=== PATIENT | male | born 1980 | race Caucasian/White ===

== ENCOUNTER 2020-06-10 20:17 | Observation (INO) | payer OTHER ==
--- NOTE | 2020-06-10 20:47 | ER Document Report ---
ED Medical Screen (RME) - General Chief Complaint: Blood Pressure Problem Stated Complaint: RIGHT SIDED NUMBNESS/BLOOD PRESSURE PROBLEMS Time Seen by Provider: 06/10/20 20:34 TRAVEL OUTSIDE OF THE [place] IN LAST 30 DAYS: No - HPI Notes: 06/10/20 20:41 39-year-old male presents to emergency room for complaints of right sided full body numbness and tingling that started at 1830 while he was making dinner t onight. pt states felt dizzy while making dinner, felt a headache come on and then the right side of his body went numb. This lasted for approximately 90 minutes. he states that the numbness and tingling is starting to dissipate since coming to the ER. Denies any chest pain, shortness of breath, nausea, vomiting, abdominal pain. Denies any prior history of any heart attack or strokes. Denies any history of her sugar strokes on his parents side. Denies any preworkout or high caffeine intake. States he did drink coffee at 1030 this morning. Denies any clotting disorders. I have greeted and performed a rapid initial assessment of this patient. A comprehensive ED assessment and evaluation of the patient, analysis of test results and completion of the medical decision making process will be conducted by additional ED providers. PHYSICAL EXAMINATION: GENERAL: Well-appearing, well-nourished and in no acute distress. HEAD: Atraumatic, normocephalic. EYES: Pupils equal round extraocular movements intact, conjunctiva are normal. NECK: Normal range of motion CV: s1, s2 regular LUNGS: No respiratory distress Musculoskeletal: Normal range of motion NEUROLOGICAL: Normal speech, normal gait. PERRLA, EOMI. Full motor and sensory function throughout. [employer] + 2 L>R. No facial droop. Face symmetrical. tongue midline. No pronator drift. Slight ataxia while walking. Noted dysmetria on right, no dysmetria on left. neck with APROM. Raises eyebrows. Speaks in full sentences. No weakness on one side. SKIN: Warm, Dry, normal turgor, no rashes or lesions noted. 06/10/20 20:48 Dr. Ross and charge nurse, Anamaria, made aware at [address] Ross is recommended a CTA head and neck along with stroke work-up - Related Data Allergies/Adverse Reactions: No Known Allergies Allergy (Unverified 12/22/16 16:01) Physical Exam - Vital signs Vitals: Temp Pulse Resp BP Pulse Ox 98.2 F 79 17 145/95 H 100 06/10/20 20:29 06/10/20 20:29 06/10/20 20:29 06/10/20 20:29 06/10/20 20:29 Course - Vital Signs Vital signs: Temp Pulse Resp BP Pulse Ox 98.2 F 79 17 145/95 H 100 06/10/20 20:29 06/10/20 20:29 06/10/20 20:29 06/10/20 20:29 06/10/20 20:29
[2020-06-10 21:06] LABS: ABSOLUTE LYMPHOCYTES (AUTO) 2.1 10^3/uL (0.5-4.7); ABSOLUTE MONOCYTES (AUTO) 0.9 10^3/uL (0.1-1.4); ABSOLUTE NEUT (AUTO) 6.3 10^3/uL (1.7-8.2); BASOPHILS % (AUTO) 0.4 % (0-2); EOSINOPHILS % (AUTO) 0.4 % (0-6); HEMATOCRIT 44.5 % (37.9-51.0); HEMOGLOBIN 15.5 g/dL (13.5-17.0); INTERNATIONAL RATION (INR) 1.06; LYMPHOCYTES % (AUTO) 22.5 % (13-45); MEAN CORPUSCULAR HEMOGLOBIN 32.1 pg (27.0-33.4); MEAN CORPUSCULAR HGB CONC 34.9 g/dL (32.0-36.0); MEAN CORPUSCULAR VOLUME 92 fl (80-97); MONOCYTES % (AUTO) 9.7 % (3-13); PLATELET COUNT 212 10^3/uL (150-450); RED BLOOD COUNT 4.85 10^6/uL (4.35-5.55); RED CELL DISTRIBUTION WIDTH 13.1 % (11.5-14.0); TOTAL CELLS COUNTED % (AUTO) 100 %; WHITE BLOOD COUNT 9.4 10^3/uL (4.0-10.5)
--- NOTE | 2020-06-10 21:20 | RADIOLOGY REPORT (SQ) ---
EXAM DESCRIPTION: Site: CHEST SINGLE VIEW RP: XR CHEST 1 VIEW CLINICAL HISTORY: 39 years Male; right sided n/t at 1830; COMPARISON: None. FINDINGS: Lungs: Lungs are clear, with no focal infiltrate, pneumothorax, or pleural effusion. Mediastinum: Mediastinum is within normal limits for this positioning. Bones: Bony structures are unremarkable. IMPRESSION: 1. No acute pulmonary findings.
--- NOTE | 2020-06-10 21:22 | RADIOLOGY REPORT (SQ) ---
EXAM DESCRIPTION: CT HEAD WITHOUT IV CONTRAST COMPLETED DATE/TME: 06/10/2020 20:43 CLINICAL HISTORY: 39 years, Male, R side n/t, r/o stroke. onset 183 COMPARISON: CT from 07/22/2016. TECHNIQUE: Axial images without contrast. Sagittal coronal reconstruction. Images stored on PACS. All CT scanners at this facility use dose modulation, iterative reconstruction, and/or weight based dosing when appropriate to reduce radiation dose to as low as reasonably achievable (ALARA). FINDINGS: Normal size ventricles. No acute intra-axial or extra-axial abnormality. Paranasal sinuses, mastoid air cells and bony calvarium are unremarkable. IMPRESSION: Negative noncontrast CT of the head.
[2020-06-10 21:23] LABS: ALBUMIN 4.7 g/dL (3.5-5.0); ALKALINE PHOSPHATASE 67 U/L (38-126); ANION GAP 12 (5-19); ASPARTATE AMINO TRANSFERASE 32 U/L (17-59); BILIRUBIN,TOTAL 0.7 mg/dL (0.2-1.3); BLOOD UREA NITROGEN 16 mg/dL (7-20); CALCIUM 10.3 mg/dL (8.4-10.2); CARBON DIOXIDE 26 mmol/L (22-30); CHLORIDE 102 mmol/L (98-107); GLUCOSE 105 mg/dL (75-110); POTASSIUM 3.9 mmol/L (3.6-5.0); TOTAL PROTEIN 7.4 g/dL (6.3-8.2)
--- NOTE | 2020-06-10 21:27 | RADIOLOGY REPORT (SQ) ---
EXAM DESCRIPTION: CT NECK ANGIOGRAPHY WITHOUT THEN WITH IV CONTRAST COMPLETED DATE/TME: 06/10/2020 21:14 CLINICAL HISTORY: 39 years, Male, right sided n/t at 1830 COMPARISON: None. TECHNIQUE: 100 mL of Omnipaque 350. MIP reconstruction. Images stored on PACS. All CT scanners at this facility use dose modulation, iterative reconstruction, and/or weight based dosing when appropriate to reduce radiation dose to as low as reasonably achievable (ALARA). FINDINGS: Top of the aortic arch, origin of great vessels are unremarkable. Patent bilateral vertebral arteries. Patent bilateral common carotid and internal carotid and external carotid arteries without narrowing. Soft tissues of the neck and cervical spine are unremarkable. IMPRESSION: Normal CTA of the neck. TECHNICAL DOCUMENTATION: Quality ID # 436: Final reports with documentation of one or more dose reduction techniques (e.g., Automated exposure control, adjustment of the mA and/or kV according to patient size, use of iterative reconstruction technique) copyright 2011 [employer]- All Rights Reserved
--- NOTE | 2020-06-10 21:31 | RADIOLOGY REPORT (SQ) ---
EXAM DESCRIPTION: CT HEAD ANGIOGRAPHY WITHOUT THEN WITH IV CONTRAST COMPLETED DATE/TME: 06/10/2020 21:14 CLINICAL HISTORY: 39 years, Male, right sided n/t at 1830 COMPARISON: CT of the head from today. TECHNIQUE: Axial images with 100 mL of Omnipaque 350. MIP reconstruction. Images stored on PACS. All CT scanners at this facility use dose modulation, iterative reconstruction, and/or weight based dosing when appropriate to reduce radiation dose to as low as reasonably achievable (ALARA). FINDINGS: Distal vertebral, basilar and posterior cerebral arteries are unremarkable. Distal internal carotid middle and anterior cerebral arteries are unremarkable. IMPRESSION: Normal CTA of the head
[2020-06-10] MEDS ORDERED: ASPIRIN 325 MG TABLET PO ONE (21:40)
--- NOTE | 2020-06-10 21:46 | ER Document Report ---
ED General - General Chief Complaint: S/S of Possible Stroke Stated Complaint: RIGHT SIDED NUMBNESS/BLOOD PRESSURE PROBLEMS Time Seen by Provider: 06/10/20 20:34 TRAVEL OUTSIDE OF THE [place] IN LAST 30 DAYS: No - HPI Notes: Patient is a 39-year-old male who presents to the emergency department for evaluation. At approximately 1800 hrs., he was in the kitchen preparing dinner. He noticed that the right side of his body had gone numb. He complained of right-sided facial numbness, and particularly right upper extremity numbness. He developed a headache at the same time in the left frontal region. He described as an aching. He put the pain at its worst at a 4 out of 10. He went up to talk to his . He did have some stumbling. When speaking to her, she noticed some slurring of his speech, but he did not notice that. Since arriving in the emergency department, the patient states his pain is currently a 1 out of 10. The numbness is improved. His speech has normalized. He has no history of head injury. He denies any difficulty seeing or swallowing. He denied any obvious weakness in the lower or upper extremities. He is currently being evaluated for possible hypertension. He has had multiple visits at the [facility], where his blood pressures were in the 160s over 90s. - Related Data Allergies/Adverse Reactions: No Known Allergies Allergy (Verified 06/10/20 20:57) Home Medications: None Past Medical History - General Information source: Patient - Social History Smoking Status: Former Smoker Chew tobacco use (# tins/day): Yes Frequency of alcohol use: Occasional Drug Abuse: None Family History: Reviewed & Not Pertinent, DM Patient has homicidal ideation: No Past Surgical History: Reports: Hx Orthopedic Surgery Review of Systems - Review of Systems Constitutional: No symptoms reported EENT: No symptoms reported Cardiovascular: No symptoms reported Respiratory: No symptoms reported Gastrointestinal: No symptoms reported Genitourinary: No symptoms reported Musculoskeletal: No symptoms reported Skin: No symptoms reported Neurological/Psychological: See HPI -: Yes All other systems reviewed and negative Physical Exam - Vital signs Vitals: Temp 98.2 F 06/10/20 20:17 - Notes Notes: Vital signs reviewed, please refer to chart. Head is normocephalic, atraumatic. Pupils equal round, reactive to light. Neck is supple without meningismus. Heart is regular rate and rhythm. Lungs are clear to auscultation bilaterally. Abdomen is soft, nontender, normoactive bowel sounds throughout. Extremities without cyanosis, clubbing. Posterior calves are nontender. Peripheral pulses are equal. Skin is warm and dry. Patient is awake, alert, oriented x3. Cranial nerves II - XII are grossly intact without focal neurological deficits. Strength is plus 5 out of 5 bilateral upper and lower extremities. Sensation is intact. Reflexes symmetrical. Intact [id number], rapid alternating movements, [id number]. Course - Re-evaluation Re-evalutation: 06/10/20 21:44 Patient presents to the emergency department for evaluation. He was initially seen through triage. Given his findings and report of significant deficits, decision was made to perform CTA of the head and neck in addition to the noncontrast CT scan of the head. The patient was placed on a personnel monitor. At the time of my exam, he has no focal neurological deficits. Of course, this does rule out an acute CVA at this time, and he is not a candidate for any sort of TPA or intervention. I am, however, concerned significantly that this is a harbinger of more significant neurological event. Laboratory investigation showed a mildly elevated creatinine but was otherwise unremarkable. Imaging unremarkable. EKG showed a sinus rhythm. Patient was given aspirin. Again he is currently stable. Will discuss admission with the hospitalist. - Vital Signs Vital signs: Temp Pulse Resp BP Pulse Ox 98.2 F 66 13 148/91 H 100 06/10/20 20:29 06/10/20 20:56 06/10/20 20:56 06/10/20 20:56 06/10/20 20:56 - Laboratory Result Diagrams: 06/10/20 20:56 06/10/20 20:56 Laboratory results interpreted by me: 06/10/20 20:56 Creatinine 1.28 H Calcium 10.3 H - Diagnostic Test Radiology reviewed: Reports reviewed Radiology results interpreted by me: 06/10/20 21:[address] 06/10/20 20:39 IMPRESSION: Negative noncontrast CT of the head. Chest X-Ray 06/10/20 20:40 IMPRESSION: 1. No acute pulmonary findings. Head CTA 06/10/20 20:47 IMPRESSION: Normal CTA of the head Neck CTA 06/10/20 20:47 IMPRESSION: Normal CTA of the neck. TECHNICAL DOCUMENTATION: Quality ID # 436: Final reports with documentation of one or more dose reduction techniques (e.g., Automated exposure control, adjustment of the mA and/or kV according to patient size, use of iterative reconstruction technique) copyright 2011 [employer]- All Rights Reserved - EKG Interpretation by Me Additional EKG results interpreted by me: 06/10/20 21:45 Sinus mechanism with a rate of 73 bpm. Normal axis and intervals. No acute ST changes concerning for ischemia or infarction. Discharge - Discharge Clinical Impression: TIA (transient ischemic attack) Condition: Stable Disposition: ADMITTED OBSERVATION Admitting Provider: [facility] Admitted: Telemetry
[2020-06-10] MEDS ORDERED: ACETAMINOPHEN 325 MG TABLET PO PRN (22:55)
[2020-06-10] MEDS ORDERED: ONDANSETRON HCL INJ/PF 4 MG/2 ML SDV IV PRN (22:55)
--- NOTE | 2020-06-10 23:10 | PDOC H&P ---
History of Present Illness Admission Date/PCP: 06/10/20 22:24 Patient complains of: Right-sided facial numbness, slurred speech History of Present Illness: OBDULIA GOTTLIEB is a 39 year old male who was recently diagnosed with hypertension but currently not on any medication now presents to the ER 2 hours after he had numbness and tingling on the right side of his his body including his face. Patient reports that he was cooking getting around 6 PM when he star magdalena feeling the numbness. His who is at bedside also states that he had slurring of speech and drooling the right side of his mouth. He also states that he felt dizzy and lightheaded and had a global 7-8/10 intensity headache. In addition to these he had a very slow speech and was wobbly when he walked into car on their way here. He denies weakness of extremities. Patient denies any history of migraine or seizure except a febrile seizure which she had during childhood. Currently is not on any medication. On arrival at the ER patient symptoms had already resolved. He had CT head without contrast which showed no bleeding. And subsequently CTA of the head and neck was also done which were both unremarkable. Past Medical History Cardiac Medical History: Reports: Hypertension Past Surgical History Past Surgical History: Reports: Orthopedic Surgery Social History Information Source: Patient Lives with: Family Smoking Status: Former Smoker Electronic Cigarette use?: No Hx Recreational Drug Use: No Drugs: None - Advance Directive Resuscitation Status: Full Code Family History Family History: Reviewed & Not Pertinent, DM Parental Family History Reviewed: Yes Children Family History Reviewed: Yes Sibling(s) Family History Reviewed.: Yes Medication/Allergy Allergies/Adverse Reactions: No Known Allergies Allergy (Verified 06/10/20 20:57) Review of Systems Constitutional: ABSENT: chills, fever(s), headache(s), weight gain, weight loss Eyes: ABSENT: visual disturbances Ears: ABSENT: hearing changes Nose, Mouth, and Throat: PRESENT: as per HPI Cardiovascular: ABSENT: chest pain, dyspnea on exertion, edema, orthropnea, palpitations Respiratory: ABSENT: cough, hemoptysis Gastrointestinal: ABSENT: abdominal pain, constipation, diarrhea, hematemesis, hematochezia, nausea, vomiting Genitourinary: ABSENT: dysuria, hematuria Musculoskeletal: ABSENT: joint swelling Integumentary: ABSENT: rash, wounds Neurological: PRESENT: as per HPI Psychiatric: ABSENT: anxiety, depression, homidical ideation, suicidal ideation Endocrine: ABSENT: cold intolerance, heat intolerance, polydipsia, polyuria Hematologic/Lymphatic: ABSENT: easy bleeding, easy bruising Physical Exam Vital Signs: Temp Pulse Resp BP Pulse Ox 98.2 F 66 13 148/91 H 100 06/10/20 20:29 06/10/20 20:56 06/10/20 20:56 06/10/20 20:56 06/10/20 20:56 Intake & Output 06/09/20 06/10/20 06/11/20 06:59 06:59 06:59 Weight 92.986 kg Additional comments: GENERAL APPEARANCE: Alert and oriented x3, in no acute distress HEENT: Normocephalic and atraumatic. No scleral icterus. Moist oral mucosa NECK: Supple. No lymphadenopathy or tenderness. No carotid bruit. No JVD CHEST: Symmetric. Nontender to palpation. LUNGS: Clear with good air entry bilaterally HEART: Regular rate and rhythm with normal S1 and S2. No murmurs, gallops, or rubs. ABDOMEN: Flat, soft, active bowel sounds, no direct or rebound tenderness. No organomegaly detected. No CVA tenderness EXTREMITIES: No cyanosis, clubbing, or edema. MUSCULOSKELETAL: No deformity, atrophy or swelling noted PSYCHIATRIC: Recent and remote memory is intact. Appropriate mood and affect. SKIN: Warm, dry, and well perfused. No lesions or rashes are noted. NEUROLOGIC: Cranial nerves II- XII are intact Sensation: Normal sensation to light touch in both upper and lower extremities Motor: 5/5 in both upper and lower extremities bilaterally Normal muscle tone Reflexes: Biceps, triceps, knee and ankle reflexes 2/4 Babinski downgoing and no clonus Results Laboratory Results: 06/10/20 20:56 06/10/20 20:56 06/10/20 06/10/20 20:56 20:56 WBC 9.4 RBC 4.85 Hgb 15.5 Hct 44.5 MCV 92 MCH 32.1 MCHC 34.9 RDW 13.1 Plt Count 212 Seg Neutrophils % 67.0 Sodium 139.5 Potassium 3.9 Chloride 102 Carbon Dioxide 26 Anion Gap 12 BUN 16 Creatinine 1.28 H Est GFR ( Amer) > 60 Glucose 105 Calcium 10.3 H Total Bilirubin 0.7 AST 32 Alkaline Phosphatase 67 Total Protein 7.4 Albumin 4.7 06/10/20 20:56 Troponin I < 0.012 Impressions: Head CT 06/10/20 20:39 IMPRESSION: Negative noncontrast CT of the head. Chest X-Ray 06/10/20 20:40 IMPRESSION: 1. No acute pulmonary findings. Head CTA 06/10/20 20:47 IMPRESSION: Normal CTA of the head Neck CTA 06/10/20 20:47 IMPRESSION: Normal CTA of the neck. TECHNICAL DOCUMENTATION: Quality ID # 436: Final reports with documentation of one or more dose reduction techniques (e.g., Automated exposure control, adjustment of the mA and/or kV according to patient size, use of iterative reconstruction technique) copyright 2011 [email or web address]- All Rights Reserved Assessment and Plan - Diagnosis (1) TIA (transient ischemic attack) Is this a current diagnosis for this admission?: Yes Plan: Presents with symptoms concerning for TIA On arrival at ER patient's symptoms had resolved Currently patient has a normal neurologic exam ABCD2 score was 3, indicating low risk(7-day stroke risk of 1.2%) CT head without contrast showed no sign of intracranial bleed CTA of the head and neck was normal Will admit patient for closer observation Continue telemetry monitoring Lipid panel in the morning Neuro check, fall precaution, swallow eval Continue aspirin and will start high intensity statin hold off on starting antihypertensive medication to allow permissive hypertension Echocardiogram tomorrow morning (2) Hypertension Is this a current diagnosis for this admission?: Yes Plan: Recently diagnosed Currently not on medication Low-sodium diet Consider starting him on antihypertensive on discharge - Time Time Spent with patient: 35 or more minutes Total Critical Time (Minutes): 35 Medications reviewed and adjusted accordingly: Yes Anticipated Discharge Disposition: Home, Self Care Anticipated Discharge Timeframe: within 48 hours - Inpatient Certification Based on my medical assessment, after consideration of the patient's comorbidities, presenting symptoms, or acuity I expect that the services needed warrant INPATIENT care.: Yes I certify that my determination is in accordance with my understanding of Medicare's requirements for reasonable and necessary INPATIENT services [42 CFR 412.3e].: Yes Medical Necessity: Need Close Monitoring Due to Risk of Patient Decompensation, Need For Continuous Telemetry Monitoring, Need for Neurological Checks Post Hospital Care: D/C or Transfer Summary
[2020-06-11] MEDS: FAMOTIDINE 20 MG TABLET PO SCH ×2 (01:25→09:43)
[2020-06-11 06:22] LABS: CHOLESTEROL 148.77 mg/dL (0-200); TRIGLYCERIDES 62 mg/dL (<150)
[2020-06-11 06:34] LABS: DIRECT LDL 86 mg/dL (<100)
[2020-06-11] MEDS ORDERED: ENOXAPARIN SODIUM INJ 40 MG/0.4 ML DISP.SYRIN SUBCUT SCH (10:00)
--- NOTE | 2020-06-11 13:15 | RADIOLOGY REPORT (SQ) ---
EXAM DESCRIPTION: MRI HEAD WITHOUT IMAGES COMPLETED DATE/TIME: 06/11/2020 11:55 am REASON FOR STUDY: tia COMPARISON: CT brain dated 06/10/2020 TECHNIQUE: Multiplanar imaging includes non-contrasted T1, T2, FLAIR, and diffusion with ADC map seq uences. Images stored on PACS. LIMITATIONS: None. FINDINGS: ANATOMY: No anomalies. Normal vascular flow voids. Pituitary fossa normal. CSF SPACES: Normal in size and contour. No hemorrhage. CEREBRUM: Sulci and gyri normal in size and contour. Normal white matter signal on FLAIR imaging. No evidence of hemorrhage, mass, or extraaxial fluid collection. POSTERIOR FOSSA: No signal alteration. No hemorrhage. No edema, masses or mass effect. Internal maria eugenia tory canals, cerebello-pontine angles, mastoids normal. DIFFUSION IMAGING: Negative for acute or sub-acute infarction. ORBITS: No masses. Globes normal. PARANASAL SINUSES: No fluid levels. Mucosa normal. OTHER: No other significant finding. IMPRESSION: NORMAL MRI OF THE BRAIN WITHOUT INTRAVENOUS GADOLINIUM CONTRAST. EVIDENCE OF ACUTE STROKE: NO. TECHNICAL DOCUMENTATION: JOB ID: [id number] 2010 [employer]- All Rights Reserved Reading location - IP/workstation name: [email or web address]
[2020-06-11 13:31] VITALS: BP 142/86
--- NOTE | 2020-06-11 15:45 | PDOC DISCHARGE SUMMARY ---
Impression - Admit/DC Date/PCP Admission Date/Primary Care Provider: 06/10/20 22:24 Discharge Date: 06/11/20 - Discharge Diagnosis (1) Hypertension Is this a current diagnosis for this admission?: Yes (2) TIA (transient ischemic attack) Is this a current diagnosis for this admission?: Yes - Additional Information Resuscitation Status: Full Code Discharge Diet: Cardiac Discharge Activity: Activity As Tolerated Referrals: [facility] [Provider Group] (Provider will have to make appointment. [facility] doesnt allow anyone but patient to make appointment.) Prescriptions: Aspirin [Aspirin 81 mg Chewable Tablet] 81 mg PO DAILY #30 tab.chew Home Medications: Aspirin [Aspirin 81 mg Chewable Tablet] 81 mg PO DAILY #30 tab.chew 06/11/20 History of Present Illiness History of Present Illness: OBDULIA GOTTLIEB is a 39 year old male who was recently diagnosed with hypertension but currently not on any medication now presents to the ER 2 hours after he had numbness and tingling on the right side of his his body including his face. Patient reports that he was cooking getting around 6 PM when he started feeling the numbness. His who is at bedside also states that he had slurring of speech and drooling the right side of his mouth. He also states that he felt dizzy and lightheaded and had a global 7-8/10 intensity headache. In addition to these he had a very slow speech and was wobbly when he walked into car on their way here. He denies weakness of extremities. Patient denies any history of migraine or seizure except a febrile seizure which she had during childhood. Currently is not on any medication. On arrival at the ER patient symptoms had already resolved. He had CT head without contrast which showed no bleeding. And subsequently CTA of the head and neck was also done which were both unremarkable. Hospital Course Hospital Course: His imaging of his brain was negative for acute stroke. His blood pressure came down on its own. His lipid panel was unremarkable. He showed no evidence of diabetes. Was recommended that he take a baby aspirin every day. He had no def icits. He was instructed to follow-up with his primary care provider. His labs and examination were reassuring and he was discharged in stable condition. Physical Exam Vital Signs: Temp Pulse Resp BP Pulse Ox 97.9 F 58 L 16 142/86 H 99 06/11/20 13:30 06/11/20 13:30 06/11/20 13:30 06/11/20 13:30 06/11/20 13:30 Intake & Output 06/10/20 06/11/20 06/12/20 06:59 06:59 06:59 Intake Total 222 Balance 222 Weight 95 kg General appearance: PRESENT: no acute distress, cooperative Respiratory exam: PRESENT: clear to auscultation nina, symmetrical, unlabored. ABSENT: accessory muscle use, chest wall tenderness, crackles, prolonged expiratory phas, rhonchi, tachypnea, wheezes Cardiovascular exam: PRESENT: RRR, +S1, +S2 Pulses: PRESENT: normal carotid pulses Vascular exam: PRESENT: normal capillary refill GI/Abdominal exam: PRESENT: normal bowel sounds, soft. ABSENT: distended, guarding, rebound, tenderness Extremities exam: ABSENT: clubbing, pedal edema Musculoskeletal exam: PRESENT: normal inspection. ABSENT: deformity Neurological exam: PRESENT: alert, awake, oriented to person, oriented to place, oriented to time, oriented to situation, CN II-XII grossly intact. ABSENT: motor sensory deficit Psychiatric exam: PRESENT: appropriate affect, normal mood Skin exam: PRESENT: dry, warm Results Laboratory Results: WBC 9.4 10^3/uL (4.0-10.5) 06/10/20 20:56 RBC 4.85 10^6/uL (4.35-5.55) 06/10/20 20:56 Hgb 15.5 g/dL (13.5-17.0) 06/10/20 20:56 Hct 44.5 % (37.9-51.0) 06/10/20 20:56 MCV 92 fl (80-97) 06/10/20 20:56 MCH 32.1 pg (27.0-33.4) 06/10/20 20:56 MCHC 34.9 g/dL (32.0-36.0) 06/10/20 20:56 RDW 13.1 % (11.5-14.0) 06/10/20 20:56 Plt Count 212 10^3/uL (150-450) 06/10/20 20:56 Lymph % (Auto) 22.5 % (13-45) 06/10/20 20:56 [place] % (Auto) 9.7 % (3-13) 06/10/20 20:56 Eos % (Auto) 0.4 % (0-6) 06/10/20 20:56 Baso % (Auto) 0.4 % (0-2) 06/10/20 20:56 Absolute Neuts (auto) 6.3 10^3/uL (1.7-8.2) 06/10/20 20:56 Absolute Lymphs (auto) 2.1 10^3/uL (0.5-4.7) 06/10/20 20:56 Absolute Monos (auto) 0.9 10^3/uL (0.1-1.4) 06/10/20 20:56 Absolute Eos (auto) 0.0 10^3/uL (0.0-0.6) 06/10/20 20:56 Absolute Basos (auto) 0.0 10^3/uL (0.0-0.2) 06/10/20 20:56 Seg Neutrophils % 67.0 % (42-78) 06/10/20 20:56 PT 14.0 SEC (11.4-15.4) 06/10/20 20:56 INR 1.06 06/10/20 20:56 Sodium 139.5 mmol/L (137-145) 06/10/20 20:56 Potassium 3.9 mmol/L (3.6-5.0) 06/10/20 20:56 Chloride 102 mmol/L (98-107) 06/10/20 20:56 Carbon Dioxide 26 mmol/L (22-30) 06/10/20 20:56 Anion Gap 12 (5-19) 06/10/20 20:56 BUN 16 mg/dL (7-20) 06/10/20 20:56 Creatinine 1.28 mg/dL (0.52-1.25) H 06/10/20 20:56 Est GFR ( Amer) > 60 (>60) 06/10/20 20:56 Est GFR (MDRD) Non-Af > 60 (>60) 06/10/20 20:56 Glucose 105 mg/dL (75-110) 06/10/20 20:56 Calcium 10.3 mg/dL (8.4-10.2) H 06/10/20 20:56 Total Bilirubin 0.7 mg/dL (0.2-1.3) 06/10/20 20:56 Direct Bilirubin 0.0 mg/dL (0.0-0.4) 06/10/20 20:56 Neonat Total Bilirubin Not Reportable 06/10/20 20:56 Neonat Direct Bilirubin Not Reportable 06/10/20 20:56 Neonat Indirect Bili Not Reportable 06/10/20 20:56 AST 32 U/L (17-59) 06/10/20 20:56 ALT 24 U/L (<50) 06/10/20 20:56 Alkaline Phosphatase 67 U/L (38-126) 06/10/20 20:56 Troponin I < 0.012 ng/mL 06/10/20 20:56 Total Protein 7.4 g/dL (6.3-8.2) 06/10/20 20:56 Albumin 4.7 g/dL (3.5-5.0) 06/10/20 20:56 Triglycerides 62 mg/dL (<150) 06/11/20 05:38 Cholesterol 148.77 mg/dL (0-200) 06/11/20 05:38 LDL Cholesterol Direct 86 mg/dL (<100) 06/11/20 05:38 VLDL Cholesterol 12.0 mg/dL (10-31) 06/11/20 05:38 HDL Cholesterol 43 mg/dL (>40) 06/11/20 05:38 06/10/20 20:56 Troponin I < 0.012 Impressions: Head CT 06/10/20 20:39 IMPRESSION: Negative noncontrast CT of the head. Chest X-Ray 06/10/20 20:40 IMPRESSION: 1. No acute pulmonary findings. Head CTA 06/10/20 20:47 IMPRESSION: Normal CTA of the head Neck CTA 06/10/20 20:47 IMPRESSION: Normal CTA of the neck. TECHNICAL DOCUMENTATION: Quality ID # [id number]: Final reports with documentation of one or more dose reduction techniques (e.g., Automated exposure control, adjustment of the mA and/or kV according to patient size, use of iterative reconstruction technique) copyright 2011 [employer]- All Rights Reserved Head MRI 06/11/20 00:00 IMPRESSION: NORMAL MRI OF THE BRAIN WITHOUT INTRAVENOUS GADOLINIUM CONTRAST. EVIDENCE OF ACUTE STROKE: NO. Plan Time Spent: Greater than 30 Minutes Stroke Is this a Stroke Patient?: No Acute Heart Failure Is this a Heart Failure Patient?: No
--- NOTE | 2020-06-11 17:49 | EKG REPORT ---
SEVERITY:- NORMAL ECG - SINUS RHYTHM : Confirmed by: Joe Oconnor 11-Jun-2020 17:48:12
== END 2020-06-11 13:49 | disposition home or self-care (01) ==
LOC: ER 20:17 → EH 22:24 → 3W 06-11 00:20
PROVIDERS: ADMIT Student in an Organized Health Care Education/Training Program; ATTEND Family Medicine
DX: I10 Essential (primary) hypertension (principal); G45.9 Transient cerebral ischemic attack, unspecified; R27.0 Ataxia, unspecified; R27.8 Other lack of coordination; Z83.3 Family history of diabetes mellitus; Z87.891 Personal history of nicotine dependence
CPT/HCPCS: 93005; 99285; 36415 ×2; 85025; 85610; 80053; 84484; 80061; 70551; 71045; 70450; 70496; 70498; 93010; 92522; G0378 ×2; J1650; J2405